=== PATIENT | male | born 1945 | race Caucasian/White ===

== ENCOUNTER → 2017-07-07 | Day surgery (SDC) | payer MEDICARE, OTHER ==
[2017-06-30 12:26] LABS: BASOPHILS % 0.6 % (0.0-1.0); EOSINOPHILS # (AUTO) 0.1 (0.0-0.4); EOSINOPHILS % 1.4 % (0.0-6.0); HEMATOCRIT 42.6 % (38.2-49.6); LYMPHOCYTES # (AUTO) 3.2 (1.0-3.2); LYMPHOCYTES % 43.9 % (18.0-39.1); MEAN CORPUSCULAR HEMOGLOBIN 30.6 pg (28-32); MEAN CORPUSCULAR HGB CONC 35.2 g/dL (31-35); MEAN CORPUSCULAR VOLUME 86.9 fL (81-99); MONOCYTES # (AUTO) 0.7 (0.2-0.8); MONOCYTES % 9.4 % (4.4-11.3); NEUTROPHILS # (AUTO) 3.2 (2.1-6.9); NEUTROPHILS % 44.4 % (38.7-80.0); PLATELET COUNT 200 x10e3/uL (140-360); RED CELL DISTRIBUTION WIDTH 12.8 % (11.7-14.4)
[~2017-07-07] MED LIST: FENTANYL CITRATE/PF 100MCG/2 ML INJ ONE; GLUCOSAMINE PO; HYOSCYAMINE SULFATE 0.5 MG/ML AMP ONE; LIDOCAINE HCL 2% LOCAL INJ 5 ML SDV VIAL INJ ONE; MIDAZOLAM HCL 2 MG/2 ML VIAL ONE; PROPOFOL IV EMULSION 10 MG/ML 50 ML VIAL ONE; VITAMIN C PO
--- NOTE | 2017-07-07 10:33 | Operative Report ---
DATE OF PROCEDURE: July 07, 2017 REFERRING PHYSICIAN: Dr. Gibran Thompson PROCEDURE PERFORMED: Colonoscopy and polypectomy. INDICATIONS FOR COLONOSCOPY: Colorectal cancer screening, personal history of colon polyps. MEDICATION: Patient was done under MAC. Please see anesthesiologist's note. PROCEDURE: With the patient in the left lateral decubitus position, the flexible fiberoptic Olympus colonoscope was inserted into the rectum with ease and advanced all the way to the cecum. One polyp was snared from the cecum. The scope was then withdrawn slowly. Mucosa overlying the ascending, transverse and descending appeared to be within normal limits. Diverticular disease was noted in the sigmoid colon. One polyp was snared from the sigmoid colon. The rectum appeared to be within normal limits. The scope was then retroflexed into the distal rectum, and small internal hemorrhoids were noted, none of which was actively bleeding. The scope was then straightened out. The scope was subsequently withdrawn. Patient tolerated the procedure well. IMPRESSION 1. Cecal polyp, snared. 2. Sigmoid colon polyps, snared. 3. Diverticulosis. 4. Internal hemorrhoids, none actively bleeding. PLAN: Follow up histology. Initiate high-fiber, low-fat diet. Initiate high-fiber supplement. Patient will need a followup colonoscopy in 3 years. Job#: [id number] cc:GIBRAN THOMPSON MD
== END | disposition home or self-care (01) ==
LOC: OR 07:28
PROVIDERS: ATTEND Internal Medicine Gastroenterology
DX: Z12.11 Encounter for screening for malignant neoplasm of colon (principal); D12.5 Benign neoplasm of sigmoid colon; D12.0 Benign neoplasm of cecum; Z86.010 Personal history of colon polyps; R03.0 Elevated blood-pressure reading, without diagnosis of hypertension; K57.30 Diverticulosis of large intestine without perforation or abscess without bleeding; K64.8 Other hemorrhoids
CPT/HCPCS: 36415; 45385; 85025; 88305; 93005; J1980; J2001; J2250; 45378

== ENCOUNTER → 2017-08-14 | Outpatient (CLI) | payer MEDICARE, OTHER ==
[~2017-08-14] MED LIST changes: -FENTANYL CITRATE/PF 100MCG/2 ML INJ ONE; -HYOSCYAMINE SULFATE 0.5 MG/ML AMP ONE; -LIDOCAINE HCL 2% LOCAL INJ 5 ML SDV VIAL INJ ONE; -MIDAZOLAM HCL 2 MG/2 ML VIAL ONE; -PROPOFOL IV EMULSION 10 MG/ML 50 ML VIAL ONE
--- NOTE | 2017-08-14 15:55 | Diagnostic Imaging Report ---
PROCEDURE:X-RAY PARANASAL SINUSES, COMPLETE COMPARISON:None. INDICATIONS:CHRONIC SINUSITIS FINDINGS: The paranasal sinuses are clear. No fluid levels are identified. No expansile or destructive osseous lesions are seen. No evidence of fracture. CONCLUSION: No radiographic evidence of sinusitis. Please note that CT is more sensitive for evaluation of changes of chronic sinusitis. Dictated by: Stephane Brothers M.D. on 08/14/2017 at 15:59 Electronically approved by: Stephane Brothers M.D. on 08/14/2017 at 15:59
== END ==
LOC: RAD 14:30
PROVIDERS: ATTEND Family Medicine
DX: J32.9 Chronic sinusitis, unspecified (principal)
CPT/HCPCS: 70220

== ENCOUNTER → 2024-10-13 | Outpatient (REF) | payer MEDICARE, OTHER | LOC: MRI 13:48 | PROVIDERS: ATTEND Internal Medicine | DX: M54.40 Lumbago with sciatica, unspecified side (principal); M54.16 Radiculopathy, lumbar region | CPT/HCPCS: 72148 ==

== ENCOUNTER 2024-10-28 07:30 | Observation (INO) | payer MEDICARE, OTHER ==
[2024-10-26 15:37] LABS: BASOPHILS % 0.4 % (0.0-1.0); EOSINOPHILS % 1.7 % (0.0-6.0); LYMPHOCYTES % 43.8 % (18.0-39.1); MONOCYTES % 14.7 % (4.4-11.3); NEUTROPHILS % 39.3 % (38.7-80.0); RED CELL DISTRIBUTION WIDTH 12.3 % (11.7-14.4)
[2024-10-26 16:01] LABS: INR 0.94
[2024-10-26 16:08] LABS: EST GLOMERULAR FILTRATION RATE 61.0 ML/MIN (>=60)
[~2024-10-28] VITALS: Ht 182.9 cm; Wt 100.7 kg
[~2024-10-28 07:30] MED LIST changes: +AMBIEN5 MG PO; +ECHINACEA80 MG PO; +PANTOPRAZOLE SO40 MG PO
[2024-10-28] MEDS ORDERED: LIDOCAINE HCL 2% LOCAL INJ 5 ML SDV VIAL INJ ONE (08:49)
[2024-10-28] MEDS ORDERED: ACETAMINOPHEN 1000 MG/100 ML 100 ML IV ONE (08:49)
[2024-10-28] MEDS ORDERED: FENTANYL CITRATE/PF 100MCG/2 ML INJ ONE ×2 (08:49→11:00)
[2024-10-28] MEDS ORDERED: ROCURONIUM BROMIDE 1 ML IV ONE (08:49)
[2024-10-28] MEDS ORDERED: SEVOFLURANE INHAL SOLN 250 ML PEN BTL ONE (08:49)
[2024-10-28] MEDS ORDERED: PROPOFOL IV EMULSION 10 MG/ML 20 ML VIAL ONE (08:49)
[2024-10-28] MEDS: LACTATED RINGER'S 1,000 ML ONE (08:55)
[2024-10-28] MEDS: CEFAZOLIN SODIUM 2 GM ONE (08:55)
[2024-10-28] MEDS ORDERED: DEXAMETHASONE SOD PHOS INJ 4 MG/ML SDV ONE (10:12)
[2024-10-28] MEDS ORDERED: ONDANSETRON HCL INJ 2MG/ML 2ML 2 MG/ML VIAL ONE (10:12)
[2024-10-28] MEDS ORDERED: SUGAMMADEX SODIUM 200 MG/2 ML VIAL IV ONE (11:01)
[2024-10-28] MEDS ORDERED: HYDROCODON-ACE1 EA12 PO (11:26)
[2024-10-28] MEDS ORDERED: CARISOPRODOL 350 MG TAB PO PRN (11:30)
[2024-10-28] MEDS ORDERED: ACETAMINOPHEN 325 MG TAB PO PRN (11:30)
[2024-10-28] MEDS ORDERED: PROMETHAZINE HCL (IM) 25 MG/ML VIAL IM PRN (11:30)
[2024-10-28] MEDS ORDERED: MAGNESIUM/ALUMINUM/SIMETHICONE 30 ML UDC PO PRN (11:30)
[2024-10-28] MEDS ORDERED: HYDROMORPHONE 2MG/ML IV PRN (11:30)
[2024-10-28] MEDS ORDERED: OXYCODONE/ACETAMINOPHEN 5-325 1 EACH TABLET PO PRN ×2 (11:30→15:30)
[2024-10-28] MEDS ORDERED: Morphine 10mg syringe 10 MG/ML INJ IM PRN (11:30)
[2024-10-28] MEDS ORDERED: ONDANSETRON HCL INJ 2MG/ML 2ML 2 MG/ML VIAL IV PRN (11:30)
[2024-10-28 16:30] VITALS: BP 162/69; PULSE 84; RESP 20; TEMP 97.8; O2SAT 99
[2024-10-28] MEDS: LACTATED RINGER'S 1,000 ML IV SCH (16:30)
[2024-10-28 18:02] VITALS: BP 162/69; PULSE 84; RESP 20; TEMP 97.8; O2SAT 99
[2024-10-28] MEDS ORDERED: ZOLPIDEM TARTRATE 5 MG TAB PO PRN (21:00)
[2024-10-28 21:03] VITALS: BP 180/65; PULSE 72; RESP 16; TEMP 98.7; O2SAT 100
[2024-10-28] MEDS: ZOLPIDEM TARTRATE 5 MG TAB PO SCH (22:35)
[2024-10-29 00:33] VITALS: BP 159/64; PULSE 76; RESP 16; TEMP 98.8; O2SAT 100
[2024-10-29 02:15] VITALS: BP 159/64; PULSE 76; RESP 16; TEMP 98.8; O2SAT 100
[2024-10-29 04:58] VITALS: BP 147/75; PULSE 79; RESP 16; TEMP 98.4; O2SAT 100
[2024-10-29] MEDS: PANTOPRAZOLE SOD 40 MG TABEC PO SCH (09:13)
[2024-10-29 09:43] VITALS: BP 163/67; PULSE 75; RESP 18; TEMP 97.7; O2SAT 100
== END 2024-10-29 10:30 | disposition home or self-care (01) ==
LOC: OR 07:30 → PACU V 13:02 → MED/SURG3 13:05
PROVIDERS: ADMIT Neurological Surgery; ATTEND Neurological Surgery
DX: M51.16 Intervertebral disc disorders with radiculopathy, lumbar region (principal); R12 Heartburn; Z01.810 Encounter for preprocedural cardiovascular examination; Z01.812 Encounter for preprocedural laboratory examination; Z01.818 Encounter for other preprocedural examination
CPT/HCPCS: 36415 ×2; 63056; 71046; 72020; 80048; 82948; 85025; 85610; 85730; 86850; 86900; 88304; 88311; 93005; G0378 ×2; J0131; J0690 ×2; J1100; J2003; J2405; J2470; J2704; J3010; J7121